=== PATIENT | female | born 1970 | race Caucasian/White ===

== ENCOUNTER 2018-12-11 05:30 | Inpatient (IN) | payer MEDICARE ==
[~2018-12-11] VITALS: Ht 157.5 cm; Wt 163.3 kg
[2018-12-11] MEDS ORDERED: ARIP30TA2 PO (05:41)
[2018-12-11] MEDS ORDERED: METO-396 PO (05:42)
[2018-12-11] MEDS ORDERED: METHYLPREDNISOLONE SOD SUCC 125 MG/2 ML VIAL IV STA (06:27)
[2018-12-11] MEDS ORDERED: IPRATROPIUM BROMIDE (0.02%) 0.5MG/2.5ML NEB HHN STA (06:27)
[2018-12-11] MEDS ORDERED: ALBUTEROL (0.083%) 2.5MG/3ML NEB HHN STA (06:27)
[2018-12-11 06:51] LABS: BASOPHILS % 0.8 % (0.0-2.0); EOSINOPHILS % 1.6 % (0.0-5.0); HEMATOCRIT. 38.3 % (36.0-48.0); HEMOGLOBIN. 12.4 g/dL (12.0-16.0); LYMPHOCYTES % 25.1 % (20.0-50.0); MEAN CORPUSCULAR HEMOGLOBIN 29.9 pg (28.0-32.0); MEAN CORPUSCULAR VOLUME 92.2 fL (81.0-99.0); MEAN PLATELET VOLUME 7.5 fl (7.4-10.4); MONOCYTES % 7.8 % (2.0-8.0); NEUTROPHILS % 64.7 % (40.0-76.0); PLATELET 288 x1000/uL (130-400); RED BLOOD CELL COUNT 4.15 mill/uL (4.2-5.4); RED CELL DISTRIBUTION WIDTH 13.8 % (11.6-14.6)
[2018-12-11 06:53] LABS: CHLORIDE 107 mEq/L (98-107)
[2018-12-11 06:56] LABS: HCG SCREEN NEGATIVE
[2018-12-11 06:58] LABS: ETHANOL BLOOD < 10 mg/dL
[2018-12-11] MEDS ORDERED: CARBAMAZEPINE 200MG TABLET PO SCH (08:00)
[2018-12-11] MEDS ORDERED: IPRATROPIUM/ALBUTEROL 0.5-3(2.5)MG/3ML NEB HHN PRN (14:00)
[2018-12-11 14:23] VITALS: BP 129/66
[2018-12-11] MEDS ORDERED: IPRATROPIUM/ALBUTEROL 0.5-3(2.5)MG/3ML NEB INH PRN (14:30)
[2018-12-11] MEDS ORDERED: DIPHENHYDRAMINE 50MG/ML VIAL IV PRN (14:30)
[2018-12-11] MEDS ORDERED: HYDROCODONE/ACETAMINOPHEN 5/325MG TABLET PO PRN (14:30)
[2018-12-11] MEDS ORDERED: MAGNESIUM/ALUMINUM HYDROXIDE/SIMETHICONE 30ML UDC PO PRN (14:30)
[2018-12-11] MEDS ORDERED: CLONIDINE 0.1MG TABLET PO PRN (14:30)
[2018-12-11] MEDS ORDERED: DOCUSATE SODIUM 100MG CAPSULE PO PRN (14:30)
[2018-12-11] MEDS ORDERED: NA PHOS,M-B/NA PHOS,DI-BA ENEMA 118ML PR PRN (14:30)
[2018-12-11] MEDS ORDERED: ACETAMINOPHEN 650MG SUPP PR PRN (14:30)
[2018-12-11] MEDS ORDERED: ONDANSETRON HCL 4MG/2ML INJ IV PRN (14:30)
[2018-12-11] MEDS ORDERED: ACETAMINOPHEN 650MG/20.3ML UDC GT PRN (14:30)
[2018-12-11] MEDS: ARIPIPRAZOLE 10MG TABLET PO SCH (15:02)
[2018-12-11 16:00] VITALS: BP 114/53
[2018-12-11 16:09] LABS: CLARITY URINE TURBID (CLEAR); COLOR URINE YELLOW (YELLOW); KETONES URINE NEGATIVE (NEGATIVE); LEUKOCYTE ESTERASE URINE 2+ (NEGATIVE); NITRITE URINE NEGATIVE (NEGATIVE); OCCULT BLOOD URINE NEGATIVE (NEGATIVE); PH URINE >=9.0 (4.5-8.0); PROTEIN URINE 1+ (NEGATIVE); SPECIFIC GRAVITY URINE 1.024 (1.005-1.030)
[2018-12-11] MEDS ORDERED: INFLUENZA VIRUS VACCINE(AFLURIA) 0.5ML SYR IM ONE (16:15)
[2018-12-11 16:31] LABS: *BARBITURATES SCREEN URINE NEGATIVE (NEGATIVE)
[2018-12-11 16:32] LABS: *AMPHETAMINES SCREEN URINE NEGATIVE (NEGATIVE); *BENZODIAZEPINES SCREEN URINE NEGATIVE (NEGATIVE); *COCAINE SCREEN URINE NEGATIVE (NEGATIVE); CANNABINOID URINE SCREEN NEGATIVE (NEGATIVE); OPIATES URINE SCREEN NEGATIVE (NEGATIVE)
[2018-12-11 16:33] LABS: METHADONE URINE SCREEN NEGATIVE (NEGATIVE); PHENCYCLIDINE URINE SCREEN NEGATIVE (NEGATIVE)
[2018-12-11] MEDS: METHYLPREDNISOLONE SOD SUCC 40 MG/ML VIAL IV SCH (18:05)
[2018-12-11 20:00] VITALS: BP 143/77
[2018-12-11] MEDS: ENOXAPARIN 40MG/0.4ML SYR SUBCUT SCH (21:23)
[2018-12-11] MEDS: METOPROLOL TARTRATE 25MG TABLET PO SCH (21:23)
[2018-12-11] MEDS: IPRATROPIUM/ALBUTEROL 0.5-3(2.5)MG/3ML NEB HHN SCH (22:18)
[2018-12-11] MEDS: OXCARBAZEPINE 300MG TABLET PO SCH (23:34)
[2018-12-11] MEDS: SODIUM CHLORIDE 0.9% INJ 3ML FLUSH IVF SCH (23:34)
[2018-12-12] VITALS (7 sets, daily range): BP systolic 103–160; BP diastolic 48–80
[2018-12-12] MEDS: BUDESONIDE 0.5MG/2ML NEB HHN SCH ×3 (02:40→20:12)
[2018-12-12] MEDS: IPRATROPIUM/ALBUTEROL 0.5-3(2.5)MG/3ML NEB HHN SCH ×3 (02:41→20:12)
[2018-12-12] MEDS: SODIUM CHLORIDE 0.9% INJ 3ML FLUSH IVF SCH ×3 (06:05→22:00)
[2018-12-12] MEDS: METHYLPREDNISOLONE SOD SUCC 40 MG/ML VIAL IV SCH ×2 (06:05→18:07)
[2018-12-12] MEDS: PANTOPRAZOLE 40MG DR TABLET PO SCH (06:08)
[2018-12-12 07:01] LABS: BASOPHILS % 0.7 % (0.0-2.0); EOSINOPHILS % 0.1 % (0.0-5.0); HEMATOCRIT. 35.5 % (36.0-48.0); HEMOGLOBIN. 11.7 g/dL (12.0-16.0); LYMPHOCYTES % 21.4 % (20.0-50.0); MEAN CORPUSCULAR HEMOGLOBIN 30.7 pg (28.0-32.0); MEAN CORPUSCULAR VOLUME 93.2 fL (81.0-99.0); MEAN PLATELET VOLUME 7.8 fl (7.4-10.4); MONOCYTES % 7.9 % (2.0-8.0); NEUTROPHILS % 69.9 % (40.0-76.0); PLATELET 251 x1000/uL (130-400); RED BLOOD CELL COUNT 3.81 mill/uL (4.2-5.4); RED CELL DISTRIBUTION WIDTH 14.3 % (11.6-14.6)
[2018-12-12 07:16] LABS: CHLORIDE 110 mEq/L (98-107)
[2018-12-12 07:40] LABS: LDL CHOLESTEROL 58 mg/dL (5-100)
[2018-12-12 07:41] LABS: HDL CHOLESTEROL 69 mg/dL (40-59)
[2018-12-12] MEDS: METOPROLOL TARTRATE 25MG TABLET PO SCH ×2 (09:38→21:09)
[2018-12-12] MEDS: ARIPIPRAZOLE 10MG TABLET PO SCH (09:38)
[2018-12-12] MEDS: OXCARBAZEPINE 300MG TABLET PO SCH ×2 (09:39→21:09)
[2018-12-12] MEDS: ENOXAPARIN 40MG/0.4ML SYR SUBCUT SCH ×2 (09:39→21:06)
[2018-12-12] MEDS: ACETAMINOPHEN 325MG TABLET PO PRN (21:07)
[2018-12-13] VITALS (7 sets, daily range): BP systolic 112–142; BP diastolic 48–89
[2018-12-13] MEDS: IPRATROPIUM/ALBUTEROL 0.5-3(2.5)MG/3ML NEB HHN SCH ×4 (01:14→20:41)
[2018-12-13] MEDS: SODIUM CHLORIDE 0.9% INJ 3ML FLUSH IVF SCH ×3 (05:14→22:04)
[2018-12-13] MEDS: BUDESONIDE 0.5MG/2ML NEB HHN SCH ×2 (08:44→20:40)
[2018-12-13] MEDS: ENOXAPARIN 40MG/0.4ML SYR SUBCUT SCH ×2 (09:20→20:39)
[2018-12-13] MEDS: PANTOPRAZOLE 40MG DR TABLET PO SCH (09:21)
[2018-12-13] MEDS: ARIPIPRAZOLE 10MG TABLET PO SCH (09:21)
[2018-12-13] MEDS: OXCARBAZEPINE 300MG TABLET PO SCH ×2 (09:21→20:36)
[2018-12-13] MEDS: METOPROLOL TARTRATE 25MG TABLET PO SCH ×2 (09:24→20:37)
[2018-12-13] MEDS ORDERED: P50 MT (14:02)
[2018-12-13] MEDS ORDERED: OXCA300T4 PO (14:02)
[2018-12-13] MEDS: ACETAMINOPHEN 325MG TABLET PO PRN (15:53)
[2018-12-13] MEDS ORDERED: OXCARBAZEPINE 300MG TABLET PO NR (21:45)
[2018-12-14] VITALS: BP 121/69
[2018-12-14] MEDS: IPRATROPIUM/ALBUTEROL 0.5-3(2.5)MG/3ML NEB HHN SCH ×2 (01:52→08:19)
[2018-12-14 04:00] VITALS: BP 126/64
[2018-12-14 08:00] VITALS: BP 117/65
[2018-12-14] MEDS: BUDESONIDE 0.5MG/2ML NEB HHN SCH (08:19)
[2018-12-14] MEDS ORDERED: OXCARBAZEPINE 300MG TABLET PO SCH (09:00)
[2018-12-14] MEDS ORDERED: METHYLPREDNISOLONE SOD SUCC 40 MG/ML VIAL IV SCH (09:00)
[2018-12-14] MEDS ORDERED: FAMOTIDINE 20MG TABLET PO SCH (09:00)
[2018-12-14] MEDS: ENOXAPARIN 40MG/0.4ML SYR SUBCUT SCH (09:22)
[2018-12-14] MEDS: METOPROLOL TARTRATE 25MG TABLET PO SCH (09:22)
[2018-12-14] MEDS: ARIPIPRAZOLE 10MG TABLET PO SCH (09:23)
== END 2018-12-14 12:30 | disposition home or self-care (01) | DRG 100 ==
LOC: ER 06:21 → 8WST 10:06 → EDBEDREQ 10:09 → ENRESERV 10:32
PROVIDERS: ADMIT Family Medicine; ATTEND Family Medicine
DX: G40.409 Other generalized epilepsy and epileptic syndromes, not intractable, without status epilepticus (principal); J96.00 Acute respiratory failure, unspecified whether with hypoxia or hypercapnia; J44.1 Chronic obstructive pulmonary disease with (acute) exacerbation; Z68.44 Body mass index [BMI] 60.0-69.9, adult; E66.01 Morbid (severe) obesity due to excess calories; G90.8 Other disorders of autonomic nervous system; K21.9 Gastro-esophageal reflux disease without esophagitis; Z79.82 Long term (current) use of aspirin; Z90.49 Acquired absence of other specified parts of digestive tract; Z88.8 Allergy status to other drugs, medicaments and biological substances; Z98.2 Presence of cerebrospinal fluid drainage device; Z79.899 Other long term (current) drug therapy
CPT/HCPCS: 36415; 71045; 80061; 80156; 80305; 83605; 83880; 84484; 84703; 93005; 94644; 96374; 99285; G0482; J1650; J2920; J2930; J7611; J7620; J7626